=== PATIENT | male | born 1990 | race Caucasian/White ===

== ENCOUNTER 2019-12-01 15:45 | Emergency (ER) | payer SELFPAY ==
[~2019-12-01] VITALS: Ht 203.2 cm; Wt 176.0 kg
[2019-12-01 15:49] VITALS: BP 147/88
[2019-12-01] MEDS ORDERED: IBUPROFEN 600MG TABLET PO ONE (16:15)
== END 2019-12-01 16:34 | disposition home or self-care (01) ==
LOC: ER 16:17
DX: J03.90 Acute tonsillitis, unspecified (principal)
CPT/HCPCS: 99282